=== PATIENT | male | born 1940 | race Hispanic/Latino ===

== ENCOUNTER 2018-02-26 09:40 | Inpatient (IN) | payer MEDICARE ==
--- NOTE | 2018-02-26 09:55 | ED PDOC ---
Arrival/HPI - General Time Seen by Provider: 02/26/18 09:43 Historian: Patient, EMS - History of Present Illness Narrative History of Present Illness (Text): 02/26/18 09:45 A 77 year old male, with unknown past medical history, brought in by [place] for AMS. Patient's had called, stating patient is more confused and generally weaker than usual for the past several months. Reports patient is so weak that he "slipped out of his wheelchair" and had difficulty ambulating. There are no reported injuries. Limited HPI and ROS due to patient being a poor historian because of his AMS. He states that he believed his legs started to swell "two months ago". He denies any headache or chest pain or shortness of breath. Denies fevers or chills. States he ate this morning without difficulty. No PMD 02/26/18 10:11 Time/Duration: Other (several months) Past Medical History - Provider Review Nursing Documentation Reviewed: Yes Family/Social History - Physician Review Nursing Documentation Reviewed: Yes Family/Social History: No Known Family HX Allergies/Home Meds Allergies/Adverse Reactions: Allergies No Known Allergies Allergy (Verified 02/26/18 15:59) Home Medications: Home Meds Medication Instructions Recorded Confirmed Divalproex [Depakote DR] 1 tab PO BID 02/26/18 02/26/18 Furosemide [Lasix] 1 tab PO DAILY 02/26/18 02/26/18 Levothyroxine [Synthroid] 1 tab PO DAILY 02/26/18 02/26/18 Mirtazapine [Remeron] 1 tab PO HS 02/26/18 02/26/18 diaZEpam [Valium] 1 tab PO BID 02/26/18 02/26/18 Review of Systems - Review of Systems Systems not reviewed;Unavailable: Altered Mental Status Constitutional: Fatigue. absent: Fevers Respiratory: absent: SOB Cardiovascular: Edema, DISLA. absent: Chest Pain Gastrointestinal: absent: Abdominal Pain, Nausea Genitourinary Male: absent: Dysuria Musculoskeletal: absent: Back Pain Skin: absent: Rash Neurological: Dizziness, Disequilibrium. absent: Headache, Focal Weakness Endocrine: absent: Polyuria Hemo/Lymphatic: absent: Easy Bleeding Psychiatric: absent: Depression Physical Exam - Physical Exam Narrative Physical Exam (Text): Head: Atraumatic. Normocephalic. Eyes: PERRL. EOMI. Conjunctivae are not pale. ENT: Mucous membranes are dry. Poor dentition. No pharyngeal erythema or exudates. Neck: Supple. Full ROM. No JVD. No lymphadenopathy. No meningeal signs. Cardiovascular: Tachycardic. Systolic murmur. No rubs. Distal pulses intact. Pulmonary/Chest: No evidence of respiratory distress. Clear to auscultation bilaterally. No wheezing, rales or rhonchi. Abdominal: Soft. Mildly distended but nontender. No rebound or guarding. No pusatile masses. Genitourinary: no incarcerated hernia noted Rectal: no melena or gross bleeding, there is stool noted between gluteal folds with skin breakdown, no bleeding or drainage Back: No CVA tenderness. No midline deformity. Abrasion noted to left upper back with no deformity or crepitus Extremities: Bilateral lower extremity edema with scaly skin changes. Left forearm with superfical abrasion with some soft tissue swelling. No bony pain with ROM of shoulder, elbow and wrist. Skin: Abrasion noted to left arm as noted above. Neurological: Alert, answers questions but disoriented to place and time. No facial droop. Will move all four extremities equally. Psychiatric: Answers questions. Appears confused. Vital Signs Reviewed: Yes Vital Signs Temp Pulse Resp BP Pulse Ox 02/26/18 14:26 103 H 18 97/60 L 99 02/26/18 12:24 98.3 F 02/26/18 12:17 100 H 18 111/65 100 02/26/18 09:56 97.7 F 105 H 18 107/59 L 100 Temperature: Afebrile Blood Pressure: Hypotensive Pulse: Tachycardic Appearance: Positive for: Unkept Mental Status: Positive for: Confused Medical Decision Making ED Course and Treatment: 02/26/18 09:50 Impression: 77 year old male with AMS. Plan: -- EKG -- Head CT -- Chest X-ray -- IV Fluids -- Labs -- Blood Culture -- Urine Culture -- Venous Blood Gas -- Fingerstick -- Urinary Catheter -- Reassess and disposition Progress Notes: Patient presents via ambulance on initial exam. No family at bedside initially. He is answering questions, appears disoriented to place and situaion. No focal deficits noted. He is extremely unkempt. States he "slipped onto the ground" but cannot explan how and abrasions noted to back and extremities. NO focal bony tenderness noted with ROM of shoulder, elbow, hip, knee and ankle. Abrasions and back cleaned. No melena noted. 02/26/2018 11:51 Chest X-ray IMPRESSION: No active pulmonary disease. Dictator: Antonia Sanchez MD 02/26/2018 12:[address] IMPRESSION: No acute intracranial abnormality. Moderate age-related global parenchymal volume loss. Dictator: Antonia Sanchez MD Patient reports to staff that "Dr. Wooten is my doctor". Thus Dr. Wooten called and accept admission. With serial exams, he appears comfortable. presents to ED and supplements history, states that "when he woke up this morning he was more confused than he was yesterday". No known time of onset. He has no fever, no headache. Denies change in mediation or known history of overdose. states his PMD is Dr. Villeda, although states family has seen Dr. Wooten in past and accepts admission to Dr. Wooten's service. Will admit for monitoring, serial exams, neuro and cardiology consultation. - Lab Interpretations Microbiology Results: Microbiology Results 02/26/18 10:30 Blood Blood Culture - Preliminary NO GROWTH AFTER 48 HOURS 02/26/18 10:10 Blood Blood Culture - Preliminary NO GROWTH AFTER 48 HOURS 02/26/18 12:33 Urine Urine Culture - Final No Growth (<1,000 CFU/ML) Lab Results: 02/26/18 10:10 02/26/18 10:10 Lab Results 02/26/18 12:33: Urine Color Yellow, Urine Appearance Clear, Urine pH 6.5, Ur Specific [place] 1.015, Urine Protein Negative, Urine Glucose (UA) Negative, Urine Ketones Negative, Urine Blood Negative, Urine Nitrate Negative, Urine Bilirubin Negative, Urine Urobilinogen 2.0 H, Ur Leukocyte Esterase Negative 02/26/18 10:10: Sodium 139, Chloride 100, Potassium 4.1, Carbon Dioxide 30, Anion Gap 13, BUN 20, Creatinine 0.7 L, Est GFR ( Amer) > 60, Est GFR ( Non-Af Amer) > 60, Random Glucose 123 H, Calcium 8.6, Total Bilirubin 0.9, AST 56, ALT 18, Alkaline Phosphatase 70, Lactate Dehydrogenase 765 H, Total Creatine Kinase 775 H, CK-MB (CK-2) 8.4 H, CK-MB (CK-2) % 1.1 L, Troponin I 0.02 , Total Protein 6.7, Albumin 3.3, Globulin 3.5, Albumin/Globulin Ratio 0.9 L 02/26/18 10:10: PT 13.4 H, INR 1.16, APTT 35.3 02/26/18 10:10: WBC 10.2, RBC 4.03, Hgb 12.6 L, Hct 37.0 L, MCV 91.8, MCH 31.3, MCHC 34.1, RDW 13.1, Plt Count 208, MPV 8.7, Gran % 83.3 H, Lymph % (Auto) 4.5 L , [place] % (Auto) 12.1 H, Eos % (Auto) 0.0 L, Baso % (Auto) 0.1, Gran # 8.46 H, Lymph # (Auto) 0.5 L, [place] # (Auto) 1.2 H, Eos # (Auto) 0.0, Baso # (Auto) 0.01 , Neutrophils % (Manual) 85 H, Lymphocytes % (Manual) 8 L, Monocytes % (Manual) 7 H, Platelet Evaluation Normal, Anisocytosis (manual) 1+ 02/26/18 10:10: pO2 32, VBG pH 7.38, VBG pCO2 58.0, VBG HCO3 34.3 H, VBG Total CO2 36.1 H, VBG O2 Sat (Calc) 63.1, VBG Base Excess 7.3 H, VBG Potassium 4.3, Sodium 138.0, Chloride 100.0, Glucose 128 H, Lactate 2.9 H, FiO2 21.0, Venous Blood Potassium 4.3 02/26/18 10:09: POC Glucose (mg/dL) 147 H - RAD Interpretation Radiology Orders: 02/26/18 10:04 HEAD W/O CONTRAST [CT] Stat CHEST ONE VIEW [RAD] Stat Production Analyst: Radiologist - EKG Interpretation Interpreted by ED Physician: Yes Type: 12 lead EKG - Medication Orders Current Medication Orders: Alprazolam (Xanax) 0.25 mg PO Q12 PRN; Protocol PRN Reason: Anxiety Stop: 03/07/18 22:01 Divalproex Sodium (Depakote Dr(*Bid*)) 500 mg PO BID [facility] Last Admin: 02/28/18 17:51 Dose: 500 mg Behavioural Document 02/28/18 17:51 RA (Rec: 02/28/18 17:51 RA [id number]) Maintenance Maintenance Dose Yes Nonmedicinal Nonmedicinal Interventions Redirect Furosemide (Lasix) 40 mg IVP DAILY [facility] Last Admin: 02/28/18 10:42 Dose: 40 mg MAR Blood Pressure Document 02/28/18 10:42 RA (Rec: 02/28/18 10:43 [id number]) Blood Pressure Blood Pressure (100/60-150/90) 123/87 IVP Administration Document 02/28/18 10:42 RA (Rec: 02/28/18 10:43 [id number]) Charges for Administration # of IVP Administrations 1 Levothyroxine Sodium (Synthroid) 125 mcg PO DAILY [facility] Last Admin: 02/28/18 10:44 Dose: 125 mcg Mirtazapine (Remeron) 45 mg PO HS [facility] Last Admin: 02/28/18 21:25 Dose: 45 mg Discontinued Medications Aspirin (Aspirin Chewable) 81 mg PO STAT STA Stop: 02/26/18 15:00 Last Admin: 02/26/18 15:00 Dose: 81 mg Sodium Chloride (Sodium Chloride 0.45%) 1,000 mls @ 40 mls/hr IV .Q24H [facility] Last Admin: 02/26/18 16:15 Dose: 40 mls/hr eMAR Start Stop Document 02/26/18 16:15 [id number] (Rec: 02/26/18 17:18 [id number] [id number]) Intravenous Solution Start Date 02/26/18 Start Time 16:15 Multivitamins/Vitamin C 10 ml/Thiamine HCl 100 mg/ Folic Acid 1 mg/ Sodium Chloride 1,011.2 mls @ 60 mls/hr IV .[id number] ONE Stop: 02/27/18 10:05 Last Admin: 02/26/18 17:00 Dose: 60 mls/hr eMAR Start Stop Document 02/26/18 17:00 [id number] (Rec: 02/26/18 18:04 [id number]) Intravenous Solution Start Date 02/26/18 Start Time 17:00 Multivitamins/Vitamin C 10 ml/Thiamine HCl 100 mg/ Folic Acid 1 mg/ Sodium Chloride 1,011.2 mls @ 30 mls/hr IV .Q24H ONE Stop: 02/27/18 17:13 Last Admin: 02/27/18 14:28 Dose: 30 mls/hr eMAR Start Stop Document 02/27/18 14:28 SG (Rec: 02/27/18 14:29 SG [id number]) Intravenous Solution Start Date 02/27/18 Start Time 14:29 Insulin Human Regular (Humulin R Med) 0 units SC ACHS PARUL PRN Reason: Protocol Last Admin: 02/28/18 16:38 Dose: Not Given Non-Admin Reason: Blood Sugar Parameter MAR Blood Glucose Document 02/28/18 16:38 RA (Rec: 02/28/18 16:39 RA [id number]) Blood Glucose Finger Stick Blood Glucose (70-120) 108 Pneumococcal Polyvalent Vaccine (Pneumovax 23 Vaccine) 0.5 ml IM .ONCE ONE Stop: 02/26/18 19:41 Last Admin: 02/26/18 19:46 Dose: Immunization Registry Document 02/26/18 19:46 AP (Rec: 02/26/18 19:46 AP [id number]) Immunization Registry Consent Date 02/26/18 - Scribe Statement The provider has reviewed the documentation as recorded by the Anabela Mata Provider Scribe Attestation: All medical record entries made by the Scribe were at my direction and personally dictated by me. I have reviewed the chart and agree that the record accurately reflects my personal performance of the history, physical exam, medical decision making, and the department course for this patient. I have also personally directed, reviewed, and agree with the discharge instructions and disposition. Disposition/Present on Arrival - Present on Arrival Any Indicators Present on Arrival: No - Disposition Have Diagnosis and Disposition been Completed?: Yes Diagnosis: Altered mental status, Multiple abrasions, Rhabdomyolysis, Syncope, Arm contusion, Back contusion Disposition: HOSPITALIZED Disposition Time: 12:00 Patient Plan: Admission Patient Problems: Current Active Problems Problem Status Onset Altered mental status Acute Arm contusion Acute Back contusion Acute Multiple abrasions Acute Rhabdomyolysis Acute Syncope Acute Condition: FAIR
[2018-02-26] MEDS ORDERED: Sodium Chloride 0.9% 1,000 ML IV STA (10:11)
[2018-02-26 10:56] LABS: BASO # 0.01 K/mm3 (0.0-2.0); BASO % 0.1 % (0.0-3.0); GRAN # 8.46 (1.4-6.5); GRAN % 83.3 % (50.0-68.0); HEMOGLOBIN 12.6 g/dL (14.0-18.0); LYMPH # 0.5 (1.2-3.4); LYMPH % 4.5 % (22.0-35.0); MEAN CELL VOLUME 91.8 fl (80.0-105.0); MEAN CORPUSCULAR HEMOGLOBIN 31.3 pg (25.0-35.0); MEAN CORPUSCULAR HGB CONC 34.1 g/dl (31.0-37.0); MEAN PLATELET VOLUME 8.7 fl (7.0-11.0); MONO # 1.2 (0.1-0.6); MONO % 12.1 % (1.0-6.0); PLATELET COUNT 208 10^3/uL (120.0-450.0); RBC 4.03 10^6/uL (3.5-6.1); RED CELL DISTRIBUTION WIDTH 13.1 % (11.5-14.5); WHITE BLOOD COUNT 10.2 10^3/ul (4.5-11.0)
[2018-02-26 10:57] LABS: VENOUS BLOOD GAS BASE EXCESS 7.3 mmol/L (0.0-2.0); VENOUS BLOOD GAS PO2 32 mm/Hg (30-55); VENOUS BLOOD PH 7.38 (7.32-7.43)
[2018-02-26 11:02] LABS: INR 1.16; PROTHROMBIN TIME 13.4 SECONDS (9.4-12.5)
[2018-02-26 11:05] LABS: PARTIAL THROMBOPLASTIN TIME 35.3 Seconds (25.1-36.5)
[2018-02-26 11:06] LABS: ALB/GLOB RATIO 0.9 (1.1-1.8); ALBUMIN 3.3 g/dL (3.0-4.8); CALCIUM 8.6 mg/dL (8.4-10.5); GFR AFRICAN-AMERICAN > 60; GFR NON-AFRICAN AMERICAN > 60
[2018-02-26 11:13] LABS: ALT/SGPT 18 U/L (7-56); AST/SGOT 56 U/L (17-59); BLOOD UREA NITROGEN 20 mg/dL (7-21)
[2018-02-26 11:17] LABS: TROPONIN I 0.02 ng/mL
[2018-02-26 11:22] LABS: CK MB% 1.1 % (2.5-3.0); CK-MB 8.4 ng/mL (0.0-3.6)
[2018-02-26 11:35] LABS: LYMPHOCYTE 8 % (22.0-35.0); MONOCYTE 7 % (1.0-6.0); NEUTROPHIL 85 % (50.0-70.0)
[2018-02-26 11:36] LABS: ANISOCYTOSIS 1+; PLATELET ESTIMATE NORMAL (NORMAL)
--- NOTE | 2018-02-26 11:52 | RAD ---
Date of service: 02/26/2018 PROCEDURE: CHEST RADIOGRAPH, 1 VIEW HISTORY: weakness, ams COMPARISON: None available. FINDINGS: LUNGS: The lungs are well inflated and clear. PLEURA: No pneumothorax or pleural fluid seen. CARDIOVASCULAR: Normal. OSSEOUS STRUCTURES: No significant abnormalities. VISUALIZED UPPER ABDOMEN: Normal. OTHER FINDINGS: None. IMPRESSION: No active pulmonary disease.
--- NOTE | 2018-02-26 12:31 | CT ---
Date of service: 02/26/2018 PROCEDURE: CT HEAD WITHOUT CONTRAST. HISTORY: Altered mental status COMPARISON: None available. TECHNIQUE: Axial computed tomography images were obtained through the head/brain without intravenous contrast. Radiation dose: Total exam DLP = 1038.58 mGy-cm. This CT exam was performed using one or more of the following dose reduction techniques: Automated exposure control, adjustment of the mA and/or kV according to patient size, and/or use of iterative reconstruction technique. FINDINGS: HEMORRHAGE: No intracranial hemorrhage. BRAIN: Gonzalez-white matter differentiation. There is no mass, mass effect or abnormal extra-axial fluid collection. There is no territorial infarction. The midline sagittal structures are normal. VENTRICLES: There is moderate age-related global parenchymal volume loss and proportionate enlargement of the ventricles and cortical sulci. CALVARIUM: The skull base and calvarium are normal. PARANASAL SINUSES: Predominantly clear. MASTOID AIR CELLS: Predominantly clear. OTHER FINDINGS: None. IMPRESSION: No acute intracranial abnormality. Moderate age-related global parenchymal volume loss.
[2018-02-26 12:41] LABS: PH,URINE 6.5 (4.7-8.0); URINE BILIRUBIN NEGATIVE (NEGATIVE); URINE BLOOD NEGATIVE (NEGATIVE); URINE GLUCOSE (UA) NEGATIVE (NEGATIVE); URINE LEUKOCYTE ESTERASE NEGATIVE Leu/uL (NEGATIVE); URINE PROTEIN NEGATIVE mg/dL (<30 mg/dL)
[2018-02-26 12:42] LABS: URINE APPEARANCE CLEAR (CLEAR); URINE COLOR YELLOW (YELLOW)
--- NOTE | 2018-02-26 13:57 | CARD ---
APPROVED REPORT Date of service: 02/26/2018 EKG Measurement Heart [id number] <Conclusion> Sinus tachycardia Septal infarct, age undetermined Abnormal ECG
[2018-02-26 14:37] LABS: VENOUS BLOOD GAS BASE EXCESS 8.1 mmol/L (0.0-2.0); VENOUS BLOOD GAS PO2 42 mm/Hg (30-55); VENOUS BLOOD PH 7.39 (7.32-7.43)
[2018-02-26 14:57] LABS: BARBITURATES, UR NEGATIVE (NEGATIVE); BENZODIAZEPINES, UR POSITIVE (NEGATIVE); OPIATES, UR NEGATIVE (NEGATIVE); PHENCYCLIDINE, UR NEGATIVE (NEGATIVE)
[2018-02-26] MEDS ORDERED: Sodium Chloride 0.45% 1,000 ML IV SCH (16:00)
[2018-02-26] MEDS ORDERED: Multivitamin (MVI) 10 ML, Thiamine 100 MG, Folic Acid 1 MG in Sodium Chloride 0.9% 1,00... IV ONE (17:14)
--- NOTE | 2018-02-26 18:56 | CON ---
Copied To: George Murray MD Attending MD: George Murrya MD DATE: 02/26/2018 NEUROLOGY CONSULT CHIEF COMPLAINT: Altered mental status. History was obtained from the at the bedside since the patient is a poor historian. HISTORY OF PRESENT ILLNESS: This is a 77-year-old man with history of bipolar disorder, anxiety, on Depakote as well Valium 5 mg p.o. b.i.d., dyslipidemia and hypertension, who was brought in by [facility] and the noticed that the patient was more confused, generally weaker than usual over the past several months. He slipped out of his wheelchair and had difficulty ambulating and seemed to pass out. He had low systolic and diastolic blood pressures. Currently, he opens his eyes to voice, limitedly verbal, smiles, follow simple commands. Increased tone throughout, but moves all extremities equally. Very flat affect. It seems that he had U-tox was positive for benzos and possibility that he is over medicating himself with the Valium also, which his said that he is on too much overdose and makes him very sleepy. He is very deconditioned. It seems more like failure to thrive as well. PAST MEDICAL HISTORY: As above. SOCIAL HISTORY: No illicit drug use, smoking or EtOH abuse. MEDICATIONS: Reviewed by nurses' reconciliation sheet. FAMILY HISTORY: Noncontributory. The CAT scan of the head showed no acute intracranial abnormality. REVIEW OF SYSTEMS: Fourteen-point review of systems is negative except as per the HPI. LABORATORY DATA: Sodium is 139, potassium 4.1, chloride of 100, carbon dioxide 30, BUN of 20, creatinine 0.7, random glucose of 123. Elevated LVH, elevated CK-MB. Albumin is low. U-tox is positive for benzos. PHYSICAL EXAMINATION: VITAL SIGNS: Temperature 98.3, heart rate of 103, blood pressure of 97/60, respiratory rate of 18, oxygen saturation 99% by room air. GENERAL: The patient is lethargic, in no acute distress. HEENT: Atraumatic, normocephalic. PERRLA. Extraocular muscles intact. NECK: Supple. No JVD, no adenopathy noted. LUNGS: Clear to auscultation. No adventitious sounds. HEART: S1, S2. Normal rate and rhythm. No murmurs, rubs or gallops. ABDOMEN: Soft, nontender and nondistended. Bowel sounds are present. EXTREMITIES: No clubbing. No cyanosis. Peripheral pulses 2+ felt bilaterally. NEUROLOGIC: The patient is alert, drowsy, in no acute distress. Speech is hypophonic. Affect is flat. Opens eyes to voice, smiles. Cranial nerves II through XII intact. Motor exam: Increased tone throughout. Moves all extremities equally. No pronator drift seen. Very deconditioned looking. Sensory exam: Decreased light touch and pinprick up to the calves bilaterally. Decreased vibration of the toes. DTRs are 1+ throughout. Toes are downgoing bilaterally. Coordination and gait deferred for now. ASSESSMENT AND PLAN: This is a 77-year-old man, history of bipolar disorder, on Depakote; also anxiety, on Valium; hypertension; who was brought in by because he is more confused at baseline, failure to thrive, slipped out of his wheelchair, was found on the floor. It seems possibly that he probably passed out. He has low systolic and diastolic blood pressures, 97/60. It seems that he is over taking his Valium since his urine toxicology is positive for benzodiazepines and he is taking Valium 5 mg p.o. b.i.d, which the mentioned that he needs to be tapered off because it makes him very sedated and he has been on it for a long time. At this time, his altered mental status could be multifactorial from transient cerebral hypoperfusion in addition to failure to thrive and low systolic and diastolic blood pressures in addition to possible medication effect of Valium. At this time, we will recommend, 1. A psychiatric consult to evaluate his psychiatric medications and to taper him off Valium and to keep him his Depakote. 2. IV bolus of IV fluids in addition to multivitamin IV bag in terms of thiamine, folate and multivitamins to increase neuronal activity. 3. Avoid any sedative medications. 4. Monitor electrolytes and correct accordingly. 5. Physical Therapy/Occupational Therapy evaluation. Once again, thank you for this consult. George Murray MD [facility] # [id number]
[2018-02-26 19:40] VITALS: BMI 26.6
[2018-02-26] MEDS ORDERED: Pneumococcal 23-Valent Vaccine IM ONE (19:40)
[2018-02-26] MEDS: Insulin Reg-MEDIUM-Coverage SC SCH (21:48)
--- NOTE | 2018-02-26 22:23 | HP ---
Copied To: Alan Wooten DO Attending MD: Alan Wooten DO HISTORY OF PRESENT ILLNESS: I saw him this afternoon in his room. He comes in being a 77-year-old white male who came in with [facility] due to altered mental status. The said he was more confused, very weak. He actually slipped off his wheelchair, difficulty ambulating. Very poor historian. Also, his legs started swelling about 2 months ago. He has swollen legs, altered mental status. He has got hypothyroidism. He has had CHF. MEDICATIONS: He is on Remeron, Valium, Depakote, levothyroxine. FAMILY HISTORY: Unknown family history. ALLERGIES: NOT SURE ABOUT ALLERGIES, BUT NO KNOWN DRUG ALLERGIES. REVIEW OF SYSTEMS: He has had altered mental status, he is very fatigued, lethargic, difficulty talking. No apparent shortness of breath. He does have swelling on the lower extremities, voices dyspnea on exertion. No abdominal pain. No nauseousness. No problems urinating. No back pain. He has got venous stasis of the lower extremities. The lower extremities are very raw. He had dizziness, equilibrium problems. No easy bleeding. He is very confused. PHYSICAL EXAMINATION: VITAL SIGNS: He has a 97.7 temperature, 105 pulse, 18 respiratory rate, 107/59 blood pressure and 100% O2 sat. HEENT: His head is atraumatic, normocephalic. Extraocular muscles are intact. NECK: Supple. No palpable lymphadenopathy. Thyroid midline. HEART: Tachycardic. LUNGS: Poor inspiration. No evidence of wheezes, rhonchi or rales auscultated. ABDOMEN: Soft, nontender. Positive bowel sounds. No guarding, no rebound. No CVA tenderness. RECTAL: Was done the ER. No melena or gross bleeding. No back pain. EXTREMITIES: He has got bilateral edema, +4/4 pitting edema with venous stasis and scaling, crusting of the skin. He has an abrasion on the left arm. NEUROLOGIC: He is alert, confused. He was hypotensive. LABORATORY DATA: He had multiple tests done. His urine was positive for benzodiazepines. He has 139 sodium, potassium 4.1, BUN 20, creatinine 0.7, GFR is greater than 60, sugar is 130, calcium is 8.6, total bili is 0.9, AST is 56, ALT is 18, alk phos 70, lactate dehydrogenase 765. Total creatinine kinase is 775. Troponin I is 0.02, total protein 6.7, albumin is 3.3. He had a lactate of 2.9 when he came in, is down to 1.5. INR is 1.16. White count is 10.2, hemoglobin 12.6, hematocrit 37, platelets of 208. Chest x-ray was clear. CAT scan of the head showed no acute, but old and electrocardiogram has age undetermined PA. We will have consults with Cardio, Neurology and Psychiatry. He will be on his Lasix IV. He will be on banana bag. He will be on Depakote, aspirin, levothyroxine. Hopefully, he will improve. I am going to order physical therapy. He is quite weak. He might need to go to a rehab, will remain as inpatient. He is here for change in mentation, possibly benzodiazepine overdose, took too many pills and we will follow. Alan Wooten DO
[2018-02-27 07:07] LABS: MEAN CORPUSCULAR HEMOGLOBIN 30.8 pg (25.0-35.0); MEAN CORPUSCULAR HGB CONC 33.1 g/dl (31.0-37.0); MEAN PLATELET VOLUME 8.6 fl (7.0-11.0); RBC 3.28 10^6/uL (3.5-6.1); RED CELL DISTRIBUTION WIDTH 13.2 % (11.5-14.5); WHITE BLOOD COUNT 6.2 10^3/ul (4.5-11.0)
[2018-02-27 07:22] LABS: HEMOGLOBIN 10.1 g/dL (14.0-18.0)
[2018-02-27 07:24] LABS: B-TYPE NATRIURETIC PEPTIDE 1010 pg/mL (0-450)
[2018-02-27 07:43] LABS: ALB/GLOB RATIO 0.8 (1.1-1.8); ALBUMIN 2.2 g/dL (3.0-4.8); ALT/SGPT 26 U/L (7-56); AST/SGOT 46 U/L (17-59); BLOOD UREA NITROGEN 16 mg/dL (7-21); CALCIUM 7.9 mg/dL (8.4-10.5); GFR AFRICAN-AMERICAN > 60; GFR NON-AFRICAN AMERICAN > 60
[2018-02-27] MEDS ORDERED: Multivitamin (MVI) 10 ML, Thiamine 100 MG, Folic Acid 1 MG in Sodium Chloride 0.9% 1,00... IV ONE (07:57)
[2018-02-27] MEDS: Insulin Reg-MEDIUM-Coverage SC SCH ×4 (08:29→21:43)
[2018-02-27] MEDS: Divalproex 500 mg DR(BID formulation) PO SCH ×2 (10:24→18:28)
[2018-02-27] MEDS: Levothyroxine 125 MCG TAB PO SCH (10:24)
--- NOTE | 2018-02-27 12:38 | PN ---
Copied To: Alan Wooten DO Attending MD: Alan Wooten DO DATE: 02/27/2018 SUBJECTIVE: He is resting comfortably in bed this morning. He is alert and talking. He is doing much better. He has an appetite. He is not as confused as he was yesterday. I think being off that benzodiazepines made a difference. He is pleasant. PHYSICAL EXAMINATION: VITAL SIGNS: He has a 98 temp, 94 pulse, 100/54 blood pressure, 20 respiratory rate, 99% O2 sat on nasal cannula. HEENT: His head is atraumatic, normocephalic. HEART: Regular rate. LUNGS: Clear to auscultation. ABDOMEN: Soft. EXTREMITIES: Less edema. MEDICATIONS: I decreased his IV fluids. He is currently on Depakote; Lasix IV, I loaded to 30 mL. He is now flushed out of the benzos and Synthroid. LABORATORY DATA: He has a 6.2 white count, 10.1 hemoglobin, 30.5 hematocrit with 158 platelets. His lactate was low at 1.5. His chemistries: 137 sodium, potassium 3.8, BUN 16, creatinine 0.5, GFR is greater than 60, sugar is 91, calcium is 7.9, total bili is 0.6, AST is 46, ALT is 26, alk phos 53. BNP is 1010. ASSESSMENT AND PLAN: He was seen by Neurology. He had a good CAT scan of the head. I am waiting for Psychiatry to see him. He has no acute pulmonary disease on chest x-ray. I am waiting for Cardiology and Psychiatry to see him. If he does well, I hopefully, we would get him up to Psychiatry. We will discharge him home today. Alan Wooten DO
--- NOTE | 2018-02-27 15:13 | CON ---
Copied To: Amber Branch MD Attending MD: Amber Branch MD DATE: 02/27/2018 HISTORY OF PRESENT ILLNESS: In short, the patient is a 77-year-old male with unknown previous psychiatric history, most likely the patient has history of cognitive dysfunction. The patient was brought in after his called 911. The patient slipped out of his wheelchair. Psych consult was called for evaluation of altered mental status and questionable history of mental illness. The patient was seen and examined. The patient presented to be disoriented. There is no option to have meaningful conversation. The patient is randomly answering for the questions. For example, when this insurance underwriter sales asked where the patient lives. The patient's answer was I like juice, more than coffee. Also, when this insurance underwriter sales asked about the pharmacy where he fills medication. The patient's answer was regular pharmacy. The patient seems to be very poor historian. At the same time, the patient had fair eye contact. The patient was smiling back to this insurance underwriter sales. There was no agitation or aggression. The patient seems to be comfortable. VITAL SIGNS: Reviewed. Temperature 98, pulse is 94, blood pressure 100/54, respiration 20, oxygen saturation is 99. MEDICATIONS: Reviewed. The patient was on Depakote 500 mg twice a day, Lasix, Humulin, Synthroid, multivitamins, thiamine and folic acid. LABORATORY DATA: Reviewed. Hemoglobin is 10.1 and hematocrit 30.2. Coagulation reviewed. Blood gas reviewed. Chemistry reviewed. Pro-B-type natriuretic peptide is 1010, total protein is 5.2, albumin 2.2. Urinalysis showed urobilinogen 2, which is high. Toxicology is positive for benzodiazepines. Microbiology is pending. Head CT scan was done in the emergency room on 02/26/2018. The patient has moderate age-related global volume loss, most likely the patient is demented. The patient was seen by Dr. George Murray, neurologist. Yesterday, as per collateral information, the patient was on Depakote as well as on Valium and most likely the patient took more than he should, that is why he slipped off the wheelchair. Agree with the suggestion of Dr. Murray to wean him off Valium and Depakote should be continued and physical therapy and occupational therapy recommended. This insurance underwriter sales also reviewed the previous history. The patient was on the following medications, Valium 5 mg three times a day, Depakote 500 mg twice a day, Lasix, Synthroid and Remeron 45 mg at the nighttime. We will suggest those medications to be continued, but volume should be tapered down. MENTAL STATUS EXAMINATION: The patient appears to be alert, does not know where he is, smiling back to this insurance underwriter sales at times inappropriate. Mood described as, "I feel fine." Affect was reactive. At times, inappropriate smile. Thought process very concrete and disorganized. Thought content, the patient denied visual, auditory, tactile hallucinations, but this insurance underwriter sales even doubt that the patient understand the question. Insight and judgment impaired. This seems to be chronic. Impulses are well controlled. IMPRESSION: As per history, questionable history of bipolar disorder, history of possible dementia. At present moment, maybe delirious and fall most likely related to volume what the patient was taking. PLAN: Agree with Dr. Murray to wean off of Valium, small dose of benzodiazepines such as Xanax could benefit the patient. At the same time, this insurance underwriter sales is not sure why the patient is taking Valium, maybe it is a muscle relaxant. This is up to the medical team, up to the primary team. This insurance underwriter sales resumed Remeron at the nighttime. Depakote was also resumed. There are no signs of agitation or aggression. At the same time, collaterals need to be obtained from the patient's family. If the patient will be here in the hospital, Dr. Martínez will follow up on this patient. If the patient is scheduled for discharge, there is no contraindication for that. The patient's family need to be involved. Thank you very much for letting me participate in the care of your patient. Discussed with Dr. Wooten. Thank you very much. Amber Branch MD : 02/27/2018 10:02:11
--- NOTE | 2018-02-27 16:38 | CON ---
Copied To: Kavon Gutierrez MD Attending MD: Kavon Gutierrez MD DATE: 02/27/2018 CARDIOLOGY CONSULTATION HISTORY: The patient is a 77-year-old male, who presented with altered mental status. He was confused and weak. He apparently uses a wheelchair and fell out of his wheelchair. He denies chest pain, denies shortness of breath. PAST MEDICAL HISTORY: Includes Lasix for questionable reasons. Not much of a history is obtainable. REVIEW OF SYSTEMS: The patient denies all cardiac symptoms. PHYSICAL EXAMINATION: VITAL SIGNS: Blood pressure is 100/54, heart rate is in the 90s, normal sinus rhythm. NECK: Negative JVD. LUNGS: Without rales. HEART: Reveals S1, S2. EXTREMITIES: Without edema. LABORATORY DATA: Hemoglobin is 10.1. Chemistries: BUN and creatinine are unremarkable. Troponin negative x1. IMPRESSION: 1. Weakness. 2. Dementia. 3. Hypothyroidism. PLAN: Given these findings, we will obtain an echocardiogram to evaluate LV function. Kavon Gutierrez MD
[2018-02-28 06:48] LABS: HEMOGLOBIN 10.1 g/dL (14.0-18.0); MEAN CELL VOLUME 92.7 fl (80.0-105.0); MEAN CORPUSCULAR HEMOGLOBIN 30.9 pg (25.0-35.0); MEAN CORPUSCULAR HGB CONC 33.3 g/dl (31.0-37.0); MEAN PLATELET VOLUME 8.4 fl (7.0-11.0); RBC 3.27 10^6/uL (3.5-6.1); RED CELL DISTRIBUTION WIDTH 12.9 % (11.5-14.5); WHITE BLOOD COUNT 6.2 10^3/ul (4.5-11.0)
[2018-02-28 07:01] LABS: ALB/GLOB RATIO 0.7 (1.1-1.8); ALBUMIN 2.2 g/dL (3.0-4.8); ALT/SGPT 19 U/L (7-56); AST/SGOT 45 U/L (17-59); BLOOD UREA NITROGEN 17 mg/dL (7-21); CALCIUM 7.9 mg/dL (8.4-10.5); GFR AFRICAN-AMERICAN > 60; GFR NON-AFRICAN AMERICAN > 60
[2018-02-28] MEDS: Insulin Reg-MEDIUM-Coverage SC SCH ×3 (08:27→16:38)
--- NOTE | 2018-02-28 10:02 | PN ---
Copied To: Kavon Gutierrez MD Attending MD: Kavon Gutierrez MD DATE: 02/28/2018 CARDIOLOGY FOLLOWUP SUBJECTIVE: The patient is lying in bed without complaints. PHYSICAL EXAMINATION: VITAL SIGNS: Blood pressure is 105/60, the heart rate is in the 90s. NECK: Negative JVD. LUNGS: Without rales. HEART: Reveals S1, S2. EXTREMITIES: Without edema. LABORATORY DATA: Hemoglobin is 10.1. Chemistries are unremarkable. IMPRESSION: 1. Status post dizziness. 2. Weakness. 3. Anemia. 4. Hypothyroidism. PLAN: Given these findings, the patient is scheduled for echocardiogram today. We will rule out LV outflow obstruction. Kavon Gutierrez MD
[2018-02-28] MEDS: Divalproex 500 mg DR(BID formulation) PO SCH ×2 (10:44→17:51)
[2018-02-28] MEDS: Levothyroxine 125 MCG TAB PO SCH (10:44)
--- NOTE | 2018-02-28 11:49 | CARD ---
APPROVED REPORT Date of service: 02/28/2018 EXAM: Two-dimensional and M-mode echocardiogram with Doppler and color Doppler. INDICATION Dizziness and Vertigo 2D DIMENSIONS IVSd0.9 (0.7-1.1cm)LVDd4.3 (3.9-5.9cm) PWd1.0 (0.7-1.1cm)LVDs3.2 (2.5-4.0cm) FS (%) 25.8 %LVEF (%)51.1 (>50%) M-Mode DIMENSIONS Aortic Root3.70 (2.2-3.7cm)Aortic Cusp Exc.1.20 (1.5-2.0cm) Aortic Valve AoV Peak Xksubyxx322.0cm/sAoV VTI52.0cmAO Peak GR.26mmHg LVOT Peak Gtzsxydo156.0cm/sLVOT VTI33.60cmAO Mean GR.15mmHg Mitral Valve MV E Bkirvfjj11.2cm/sMV A Rmgrgytn32.9cm/sE/A ratio1.1 TDI Lateral E' Peak V12.00cm/sMedial E' Peak V8.19cm/sE/Lateral E'8.3 E/Medial E'12.1 Pulmonary Valve PV Peak Idbzobif36.9cm/sPV Peak Grad.3mmHg Tricuspid Valve TR Peak Mtigdrig304ko/sRAP XFVWULBD21faWpNB Peak Gr.16mmHg NCMO03kmVy LEFT VENTRICLE The left ventricle is normal size. There is normal left ventricular wall thickness. The left ventricular function is normal. The left ventricular ejection fraction is within the normal range. There is normal LV segmental wall motion. Transmitral Doppler flow pattern is Grade II-pseudonormal filling dynamics. RIGHT VENTRICLE The right ventricle is normal size. There is normal right ventricular wall thickness. The right ventricular systolic function is normal. ATRIA The left atrium size is normal. The right atrium size is normal. AORTIC VALVE The aortic valve is moderately to severely sclerotic. No aortic regurgitation is present. There is mild to moderate valvular aortic stenosis. MITRAL VALVE The mitral valve is mildly thickened. Mitral regurgitation is mild. TRICUSPID VALVE The tricuspid valve is normal in structure. There is no tricuspid valve regurgitation noted. PULMONIC VALVE The pulmonary valve is normal in structure. There is no pulmonic valvular regurgitation. GREAT VESSELS The aortic root is normal in size. The IVC is normal in size and collapses >50% with inspiration. PERICARDIAL EFFUSION There is a trace loculated anterior pericardial effusion. <Conclusion> The left ventricle is normal size. There is normal left ventricular wall thickness. The left ventricular function is normal. The left ventricular ejection fraction is within the normal range. There is normal LV segmental wall motion. Transmitral Doppler flow pattern is Grade II-pseudonormal filling dynamics. There is mild to moderate valvular aortic stenosis. Mitral regurgitation is mild.
--- NOTE | 2018-02-28 13:27 | PN ---
Copied To: Alan Wooten DO Attending MD: Alan Wooten DO DATE: 02/28/2018 SUBJECTIVE: I saw him in bed resting comfortably. He ate some of his breakfast. He is starting to feel better overall. He is in fairly good spirits although he is quite weak. He was walking with help and I believe a walker, now he cannot do anything. He is going to go have subacute rehab. He is on Depakote, insulin coverage, Lasix, Remeron, Synthroid and Xanax. He is now off the IV fluids. He did have a mild rhabdomyolysis when he came in. PHYSICAL EXAMINATION: GENERAL: He is talking, he is more alert, more coherent. VITAL SIGNS: He had a 98.7 temp, 80 pulse, 102/63 blood pressure, 18 respiratory rate, 99% O2 sat on 2 liters. HEENT: His head is atraumatic, normocephalic. Throat is moist. NECK: Supple. HEART: Regular rate. LUNGS: Decreased breath sound bilaterally, but clear. ABDOMEN: Soft, nontender. Positive bowel sounds. EXTREMITIES: Were +3 when he came in, like +1 on the left, like trace to +1 on the right edema. The Lasix is helping him. He is still quite weak and needs physical therapy. LABORATORY DATA: He has a white count of 6.2, hemoglobin 10.1, hematocrit 30.3, platelets 159. He has a 138 sodium, potassium 3.8, BUN is 17, creatinine 0.6, GFR is greater than 60, sugar is 87, calcium is 7.9, total bili is 0.5, AST is 45, ALT is 19, alk phos 51, total protein is 5.2, TSH is 4.16. ASSESSMENT AND PLAN: He is here for a few reasons. He is very very debilitated. Physical therapy recommended [facility], he will be going to [facility] on Friday. He had mild rhabdomyolysis, hypothyroid, dementia. He has got weakness. He had benzo, sort of an overdose of too much benzodiazepines in the system. I appreciate Psychiatry, Cardiology and Neuro's opinion. We will continue with aggressive treatment and care on Re[facility], eventually to go to [facility] for physical therapy. Alan Wooten DO [facility] # [id number]
[2018-03-01 08:06] LABS: ALB/GLOB RATIO 0.8 (1.1-1.8); ALBUMIN 2.5 g/dL (3.0-4.8); ALT/SGPT 23 U/L (7-56); AST/SGOT 46 U/L (17-59); BLOOD UREA NITROGEN 15 mg/dL (7-21); CALCIUM 8.1 mg/dL (8.4-10.5); GFR AFRICAN-AMERICAN > 60; GFR NON-AFRICAN AMERICAN > 60
[2018-03-01 08:52] LABS: HEMOGLOBIN 11.1 g/dL (14.0-18.0); MEAN CELL VOLUME 93.1 fl (80.0-105.0); MEAN CORPUSCULAR HEMOGLOBIN 30.5 pg (25.0-35.0); MEAN CORPUSCULAR HGB CONC 32.7 g/dl (31.0-37.0); MEAN PLATELET VOLUME 8.7 fl (7.0-11.0); RBC 3.64 10^6/uL (3.5-6.1); RED CELL DISTRIBUTION WIDTH 12.6 % (11.5-14.5); WHITE BLOOD COUNT 5.5 10^3/ul (4.5-11.0)
[2018-03-01] MEDS: Divalproex 500 mg DR(BID formulation) PO SCH ×2 (10:28→17:14)
[2018-03-01] MEDS: Levothyroxine 125 MCG TAB PO SCH (10:28)
--- NOTE | 2018-03-01 10:42 | PN ---
Copied To: Kavon Gutierrez MD Attending MD: Kavon Gutierrez MD DATE: 03/01/2018 CARDIOLOGY FOLLOWUP SUBJECTIVE: The patient is in bed and in no acute distress. PHYSICAL EXAMINATION: VITAL SIGNS: Blood pressure is 109/55, the heart rate is in the 80s. NECK: Negative JVD. LUNGS: Without rales. HEART: Reveals S1, S2. EXTREMITIES: Without edema. LABORATORY DATA: Hemoglobin is 11.1. Chemistries: BUN and creatinine are unremarkable. Echocardiogram reveals good LV function. There is no aortic stenosis nor any evidence for LV outflow obstruction. IMPRESSION: 1. Dizziness. 2. Weakness. 3. Anemia. 4. Hypothyroidism. PLAN: Given these findings, there is no evidence for cardiac cause of his symptoms. We will discontinue telemetry today. No further cardiac workup is necessary at this time. Kavon Gutierrez MD
[2018-03-01] MEDS ORDERED: Bismuth Subsalicylate 262 mg/15 ml Sus (240 ml) PO PRN (15:32)
--- NOTE | 2018-03-01 16:07 | PN ---
Copied To: Alan Wooten DO Attending MD: Alan Wooten DO DATE: 03/01/2018 SUBJECTIVE: I saw him resting comfortably in bed. He is quite weak. He is going to need physical therapy, [facility], that is the recommendation of physical therapy. I would like to get him out of bed to chair if possible. He ate his breakfast well. He is confused at times, on Depakote, Lasix, Remeron, Synthroid and Xanax. PHYSICAL EXAMINATION: VITAL SIGNS: He has a 98.7 temperature, 83 pulse, 101/63 blood pressure, 19 respiratory rate, 97% O2 sat on room air. HEENT: His head is atraumatic, normocephalic. He is talking to me. He is smiling. No chest pain or shortness of breath. No abdominal pain. His throat is moist. NECK: Supple. HEART: Regular rate. LUNGS: Decreased breath sounds, but clear. ABDOMEN: Soft, nontender. Positive bowel sounds. No guarding, no rebound or CVA tenderness. EXTREMITIES: Have +2/4 pitting edema with lots of venous stasis and crusting of both lower extremities. LABORATORY DATA: He has a 5.5 white count, 11.1 hemoglobin, 32.9 hematocrit with 203 platelets. Sodium 139, potassium 3.9, BUN is 15, creatinine 0.6, GFR greater than 60, sugar is 83, calcium is 8.1, total bili is 0.6, AST is 46, ALT is 23, alkaline phosphatase 55, total protein is 5.6. His vitamin B12 was good at 455. His vitamin D level was low at 21.6. I will replace his vitamin D and he was positive for benzos, the first place. He is being seen by Cardiology and Psychiatry. The plan is for physical therapy at subacute rehab. He had dizziness, weakness, anemia, hypothyroidism, debility and the recommendation is for subacute rehab. We will continue with aggressive treatment and care. Tomorrow is Friday, hopefully, he will get into a subacute rehab like [facility] or [facility] tomorrow or [place]. Thank you very much. Alan Wooten DO [facility] # [id number] MTDSandie
[2018-03-02 07:02] LABS: HEMOGLOBIN 10.5 g/dL (14.0-18.0); MEAN CELL VOLUME 92.4 fl (80.0-105.0); MEAN CORPUSCULAR HEMOGLOBIN 30.8 pg (25.0-35.0); MEAN CORPUSCULAR HGB CONC 33.3 g/dl (31.0-37.0); MEAN PLATELET VOLUME 9.1 fl (7.0-11.0); RBC 3.41 10^6/uL (3.5-6.1); RED CELL DISTRIBUTION WIDTH 12.7 % (11.5-14.5); WHITE BLOOD COUNT 5.6 10^3/ul (4.5-11.0)
[2018-03-02 07:14] LABS: ALB/GLOB RATIO 0.8 (1.1-1.8); ALBUMIN 2.5 g/dL (3.0-4.8); ALT/SGPT 27 U/L (7-56); AST/SGOT 41 U/L (17-59); BLOOD UREA NITROGEN 14 mg/dL (7-21); CALCIUM 8.1 mg/dL (8.4-10.5); GFR AFRICAN-AMERICAN > 60; GFR NON-AFRICAN AMERICAN > 60
--- NOTE | 2018-03-02 08:13 | CON ---
Copied To: Lolis Martínez MD Attending MD: Lolis Martínez MD DATE: 02/28/2018 HISTORY OF PRESENT ILLNESS: The patient is a 77-year-old white male with no prior psychiatric history; Psychiatry has been following due to altered mental status . I reviewed Dr. Branch's consultation from yesterday and I met with the patient at bedside. The patient is cooperative, though not entirely oriented to current circumstances. He is aware that he is in a "place in [place]." He believes it is [place] does not know the current year. The patient indicates that he is aware that he was brought here due to treatments for behavioral problems. Specifically, he indicates that he gets into "little arguments" with his . He denies ever threatening to harm her or making any history of physical abuse towards her. He denies having any depression or any suicidal thoughts. Denies having his mind playing tricks on him in the form of hallucinations and he denies any paranoia at this time. The patient responds are really irrelevant and at time inconsistent with questioning and consistent with his varying focus during the course of my interview at this time overnight and there appears to be no behavioral issues though he does not meet criteria for psychiatric admission at this time. Vital signs and labs were reviewed by this provider. RELEVANT PSYCHIATRIC MEDICATIONS: Include Depakote 500 b.i.d., Remeron 45 mg at bedtime. IMPRESSION: Rule out delirium, rule out delirium, rule out contribution of dementia with a questionable history of bipolar disorder, although this has not appeared to be at all contributory at this time. PLAN: At this time, we will start small dose of Xanax to help with the patient's anxiety and also to help with the patient wean off of Valium. We will not change the patient's other medications as there is no acute psychiatric indication for this. Medical team may take over at this time as there is no Psychiatric Elsa I issues. Please re-consult p.r.n. if there is a change in the patient's presentation. Lolis Martínez MD [facility] # [id number]
[2018-03-02] MEDS: Divalproex 500 mg DR(BID formulation) PO SCH (09:55)
[2018-03-02] MEDS: Levothyroxine 125 MCG TAB PO SCH (09:55)
--- NOTE | 2018-03-02 12:14 | PN ---
Copied To: Kavon Gutierrez MD Attending MD: Kavon Gutierrez MD DATE: 03/02/2018 CARDIOLOGY FOLLOWUP SUBJECTIVE: Patient is in bed, resting comfortably. PHYSICAL EXAMINATION: VITAL SIGNS: Blood pressure is 110/60, heart rate is in the 80s. NECK: Negative JVD. LUNGS: Decreased breath sounds. HEART: Reveals S1, S2. EXTREMITIES: Without edema. LABORATORY DATA: Hemoglobin is 10.5. Chemistries, BUN and creatinine are unremarkable. Potassium is 3.6. IMPRESSION: 1. Dizziness. 2. Anemia. 3. Weakness. 4. Hypothyroidism. 5. No pulmonary hypertension. PLAN: Given these findings, patient remains hemodynamically stable. No further cardiac workup is necessary. Kavon Gutierrez MD
--- NOTE | 2018-03-02 14:06 | PN ---
Copied To: Alan Wooten DO Attending MD: Alan Wooten DO DATE: 03/02/2018 SUBJECTIVE: He is resting comfortably in bed. He is pleasantly confused. He does need [facility] for physical therapy and rehabilitation and psychiatric care. He is currently on Depakote, Lasix, Pepto-Bismol, Remeron, Synthroid, Xanax. PHYSICAL EXAMINATION: VITAL SIGNS: He has a 98.1 temp, 85 pulse, 110/60 blood pressure, 16 respiratory rate, 97% O2 sat on 2 liters. HEENT: His head is atraumatic, normocephalic. HEART: Regular rate. LUNGS: Decreased breath sounds, but clear. ABDOMEN: Soft, nontender. Positive bowel sounds. EXTREMITIES: No edema. LABORATORY DATA: He has a 5.6 white count, 10.5 hemoglobin, 31.5 hematocrit with 198 platelets. He has a 138 sodium, potassium 3.6, BUN is 14, creatinine 0.6, GFR is greater than 60, sugar is 89, calcium is 8.1, total bili is 0.5, AST is 41, ALT is 27, alk phos 62, total protein is 5.6. His vitamin D is low, he is on vitamin D now. Urine is clean. It was positive for benzodiazepines. ASSESSMENT AND PLAN: He is being seen by Cardiology, Psychiatry. I am hoping we could find a facility, a subacute rehabilitation to help him physically and then getting Psychiatry to continue the treatment. He was seen by Neurology also. I will continue aggressive treatment and care on Reza Cooper. He had a benzodiazepine overdose, a little bit of rhabdomyolysis, weakness, dementia, hypothyroid. He is deaf and now, he needs physical therapy. He came fairly weak for psychiatric care. Alan Wooten DO MTDD
[2018-03-02 16:59] VITALS: BP 99/66; PULSE 80; RESP 18; TEMP 98; O2SAT 98
== END 2018-03-02 17:56 | DRG 918 ==
LOC: ED 09:40 → ERH 13:43 → 2RSO 15:31 → 5RNO 03-01 14:26
PROVIDERS: ADMIT Family Medicine; ATTEND Family Medicine
DX: T42.4X1A Poisoning by benzodiazepines, accidental (unintentional), initial encounter (principal); M62.82 Rhabdomyolysis; F03.90 Unspecified dementia, unspecified severity, without behavioral disturbance, psychotic disturbance, mood disturbance, and anxiety; E03.9 Hypothyroidism, unspecified; R55 Syncope and collapse; D64.9 Anemia, unspecified; R62.7 Adult failure to thrive; F31.9 Bipolar disorder, unspecified; H91.90 Unspecified hearing loss, unspecified ear; I11.0 Hypertensive heart disease with heart failure; I50.9 Heart failure, unspecified; E78.5 Hyperlipidemia, unspecified; R42 Dizziness and giddiness; R53.81 Other malaise; S20.229A Contusion of unspecified back wall of thorax, initial encounter; S40.029A Contusion of unspecified upper arm, initial encounter; T14.8XXA Other injury of unspecified body region, initial encounter; W05.0XXA Fall from non-moving wheelchair, initial encounter